=== PATIENT | male | born 1995 | race Two or more races ===

== ENCOUNTER → 2024-12-06 | Outpatient (CLI) | payer MEDICAID, SELFPAY ==
--- NOTE | 2024-12-06 17:07 | XR_ITS ---
Examination: Lumbar spine 3 views TECHNIQUE: Full: Lateral lower lumbar spine 3 views Date and time: 03/08/2025 1731 hours INDICATIONS: Low back pain beginning 6 months ago. FINDINGS: Satisfactory alignment lumbar vertebral bodies No lumbar fracture Mild disc narrowing L5-S1 posteriorly Impression: Mild disc narrowing posteriorly at L5-S1
== END | disposition home or self-care (01) ==
PROVIDERS: PCP Nurse Practitioner; Referring Provider Nurse Practitioner; Visit Provider Nurse Practitioner
DX: M48.07 Spinal stenosis, lumbosacral region (principal)
CPT/HCPCS: 72100